=== PATIENT | female | born 1980 | race Hispanic/Latino ===

== ENCOUNTER 2021-12-25 18:03 | Emergency (ER) | payer BC ==
[2021-12-25 19:42] LABS: Bilirubin Neg (Negative); Blood, Urine Negative (Negative); Clarity Clear (Clear); Glucose, Urine (Dipstick) Normal (Negative); Ketone, Urine Negative (Negative); Leukocyte Negative (Negative); Nitrite Negative (Negative); Protein, Urine (Dipstick) Negative (Neg-Trace); Urobilinogen Normal mg/dL (Less than 2); pH, Urine 6.5 (5.0-9.0)
[2021-12-26 18:40] LABS: Chlamydia by PCR Not Detected (NotDetected); GC by PCR Not Detected (NotDetected)
== END 2021-12-25 20:24 | disposition home or self-care (01) ==
LOC: CSHERS 18:03
DX: O99.891 Other specified diseases and conditions complicating pregnancy (principal); N89.8 Other specified noninflammatory disorders of vagina; O99.281 Endocrine, nutritional and metabolic diseases complicating pregnancy, first trimester; E05.90 Thyrotoxicosis, unspecified without thyrotoxic crisis or storm; Z3A.11 11 weeks gestation of pregnancy; Z79.899 Other long term (current) drug therapy
CPT/HCPCS: 81003; 87480; 87491; 87510; 87591; 87660; 99283

== ENCOUNTER 2022-01-25 05:49 | Observation (INO) | payer BC ==
[2022-01-25 06:25] VITALS: BMI 33.5
[2022-01-25] MEDS ORDERED: hydrALAZINE 20 MG/ML VIAL SLOW IVP PRN (06:57)
[2022-01-25] MEDS ORDERED: Ibuprofen 800 MG TAB PO PRN (06:57)
[2022-01-25] MEDS ORDERED: HYDROcodone/Acetaminophen 5/325 mg Tablet PO PRN ×2 (06:57→16:55)
[2022-01-25] MEDS ORDERED: Misoprostol 200 MCG TAB PR PRN (06:57)
[2022-01-25] MEDS ORDERED: Fentanyl 100 MCG/2 ML VIAL SLOW IVP PRN (06:57)
[2022-01-25] MEDS ORDERED: Promethazine HCl 25 MG/ML VIAL IM PRN ×2 (06:57→18:16)
[2022-01-25] MEDS ORDERED: Lidocaine 1% (PF) 30 ML VIAL SC PRN (06:57)
[2022-01-25] MEDS ORDERED: Acetaminophen 500 MG TAB PO PRN (06:57)
[2022-01-25] MEDS ORDERED: Ondansetron PF 4 MG/2 ML Vial IVP PRN ×2 (06:57→18:16)
[2022-01-25] MEDS ORDERED: Lactated Ringer's 1,000 ML IV SCH (07:00)
[2022-01-25] MEDS ORDERED: Misoprostol 100 MCG TAB VAG SCH ×3 (07:00→11:00)
[2022-01-25 07:37] LABS: Mean Corpuscular HGB CONC 34.4 g/dL (32.0-36.0); Mean Corpuscular Volume 87.2 fl (81.6-98.3); Mean Platelet Volume 10.3 fl (7.4-10.4); Platelet Count 330 10x3/uL (150-450); RBC Distribution Width 14.5 % (11.5-14.5); Red Blood Cell (RBC) Count 3.67 10x6/uL (3.90-5.03); White Blood Cell (WBC) Count 6.2 10x3/uL (3.5-10.5)
[2022-01-25] MEDS ORDERED: Misoprostol 200 MCG TAB VAG SCH (07:45)
[2022-01-25] MEDS ORDERED: Bupivacaine 0.25% HCL 30 ML VIAL ONE (08:00)
[2022-01-25 08:08] LABS: SARS-CoV-2 NAA Rapid Test Not Detected (NotDetected)
[2022-01-25] MEDS ORDERED: Fentanyl 2 mcg/Bup 0.1% Cadd 100 ML ONE ×2 (08:14→15:52)
[2022-01-25] MEDS ORDERED: Misoprostol 200 MCG TAB ONE (14:23)
[2022-01-25] MEDS ORDERED: Fentanyl 250 MCG/5 ML VIAL ONE (16:06)
[2022-01-25] MEDS ORDERED: Phenylephrine 10 MG/ML VIAL ONE (16:17)
[2022-01-25] MEDS ORDERED: Dexmedetomidine 200 MCG/2 ML VIAL ONE (16:17)
[2022-01-25] MEDS ORDERED: PROPOFOL 20 ML ONE (16:25)
[2022-01-25] MEDS ORDERED: Succinylcholine 200 MG/10 ml SYRINGE FS ONE (16:25)
[2022-01-25] MEDS ORDERED: Midazolam HCl 2 mg/2 ml Vial ONE ×2 (16:34→16:48)
[2022-01-25] MEDS ORDERED: Lidocaine 2% MPF 10 ML AMP (For Epidural Use) ONE (16:34)
[2022-01-25] MEDS ORDERED: EPINEPHrine 1 MG/ML AMP ONE (16:34)
[2022-01-25] MEDS ORDERED: Famotidine/PF 20 mg/2ml Vial ONE ×2 (16:38→17:02)
[2022-01-25] MEDS ORDERED: ceFAZolin 2 GM/Dextrose 50 ML IVPB ONE (16:54)
[2022-01-25] MEDS ORDERED: Meperidine HCl/PF 25 MG/ML VIAL ONE (17:38)
[2022-01-25] MEDS ORDERED: Ondansetron PF 4 MG/2 ML Vial ONE (17:38)
[2022-01-25] MEDS ORDERED: ePHEDrine Sulfate 50 MG/10 ML VIAL SLOW IVP PRN (18:16)
[2022-01-25] MEDS ORDERED: diphenhydrAMINE 50 MG/ML VIAL IVP PRN (18:16)
[2022-01-25] MEDS ORDERED: Naloxone HCl 0.4 mg/ml Vial IVP PRN ×2 (18:16)
[2022-01-25] MEDS ORDERED: Moisturizing Cream (Eucerin) 113 GM JAR TOP PRN (18:16)
[2022-01-25] MEDS ORDERED: Acetaminophen 325 MG TAB PO PRN (18:16)
[2022-01-25] MEDS ORDERED: Fentanyl 2 mcg/Bupivacaine 0.1% Cassette 100 ML EPIDURAL SCH (18:30)
[2022-01-25] MEDS ORDERED: Communication Order-Pharmacy FS SCH (18:30)
[2022-01-25] MEDS ORDERED: Lactated Ringer's 500 ML IV PRN (18:36)
== END 2022-01-25 21:10 | disposition home or self-care (01) ==
LOC: INTOOBSV 05:49 → CSHLD 05:49
PROVIDERS: ADMIT Student in an Organized Health Care Education/Training Program; ATTEND Student in an Organized Health Care Education/Training Program
PROC: 10D17Z9 Manual Extraction of Products of Conception, Retained, Via Natural or Artificial Opening (ICD-10-PCS; principal; 2022-01-25)
DX: O36.4XX0 Maternal care for intrauterine death, not applicable or unspecified (principal); O99.284 Endocrine, nutritional and metabolic diseases complicating childbirth; E03.9 Hypothyroidism, unspecified; Z3A.15 15 weeks gestation of pregnancy; Z79.82 Long term (current) use of aspirin; Z79.890 Hormone replacement therapy; Z37.1 Single stillbirth; Z20.822 Contact with and (suspected) exposure to COVID-19
CPT/HCPCS: 51702; 85027; 86850; 86900; 86901; 88305; J0171; J0690; J2175; J2250; J2370; J2405; J2704; J3010; S0020; S0028; U0002